=== PATIENT | male | born 1980 | race Caucasian/White ===

== ENCOUNTER 2017-08-17 20:18 | Emergency (ER) | payer MEDICAID | END 2017-08-17 23:08 | disposition left against medical advice (07) | LOC: ER 20:18 | DX: M79.673 Pain in unspecified foot (principal); Z53.21 Procedure and treatment not carried out due to patient leaving prior to being seen by health care provider ==

== ENCOUNTER 2017-08-18 00:11 | Emergency (ER) | payer MEDICAID ==
[~2017-08-18] VITALS: Ht 172.7 cm; Wt 82.0 kg
[2017-08-18 00:49] VITALS: BP 121/63
== END 2017-08-18 01:30 | disposition left against medical advice (07) ==
LOC: ER 00:11
DX: Z53.21 Procedure and treatment not carried out due to patient leaving prior to being seen by health care provider (principal)